=== PATIENT | male | born 1945 | race Caucasian/White ===

== ENCOUNTER 2016-11-11 06:53 | Day surgery (SDC) | payer OTHER ==
[2016-11-11] VITALS (10 sets, daily range): BP systolic 109–130; BP diastolic 53–86; PULSE 65–75; RESP 11–19; O2SAT 92–98
[~2016-11-11] VITALS: Ht 172.7 cm; Wt 88.0 kg
[~2016-11-11 06:53] MED LIST: CHOL200047 PO; CeFAZolin Inj 2 GM in IV Premix 1 EACH IV SCH; Lactated Ringer's 1,000 ML IV SCH
[2016-11-11] MEDS ORDERED: fentaNYL-PF 50 mCg/mL 2 mL Inj ONE (06:54)
[2016-11-11] MEDS ORDERED: Ondansetron 2 mg/mL 2 mL Inj ONE (06:54)
[2016-11-11] MEDS ORDERED: Dexamethasone 4 mg/mL Inj ONE (06:54)
[2016-11-11] MEDS ORDERED: Propofol 10,000 mCg/mL 20 mL Inj ONE (06:54)
[2016-11-11] MEDS ORDERED: HYDROcodone-APAP 5-325 mg Tablet PO PRN (07:50)
[2016-11-11] MEDS: Lactated Ringer's 1,000 ML IV SCH ×2 (08:05→08:41)
[2016-11-11] MEDS ORDERED: Lactated Ringer's 1,000 ML IV SCH (08:53)
[2016-11-11] MEDS ORDERED: Lactated Ringer's 500 ML IV PRN (08:53)
[2016-11-11] MEDS ORDERED: Ondansetron 2 mg/mL 2 mL Inj IVPUSH PRN (08:55)
[2016-11-11] MEDS ORDERED: EPHEDrine Sulfate 50 mg/mL Inj IVPUSH PRN (08:55)
[2016-11-11] MEDS ORDERED: Atropine 0.4 mg/mL Inj IVPUSH PRN (08:55)
[2016-11-11] MEDS ORDERED: Phenylephrine 10,000 mCg/mL Inj IVPUSH PRN (08:55)
[2016-11-11] MEDS ORDERED: Labetalol 5 mg/mL 4 mL Inj IV PRN (08:55)
[2016-11-11] MEDS ORDERED: Lidocaine 1%-Epi 1:100,000 20 mL Inj INJ ONE (09:03)
[2016-11-11] MEDS: fentaNYL-PF 50 mCg/mL 2 mL Inj IVPUSH PRN ×2 (10:00→10:06)
--- NOTE | 2016-11-11 16:59 | OP ---
[address] [address] OPERATIVE REPORT PATIENT: SOSA CANDELARIA : 1945 MR#: [id number] ADMIT: 11/11/2016 JOB ID: [id number] DATE OF SURGERY: 11/11/2016 PREOPERATIVE DIAGNOSIS(ES): 1. Right hand soft tissue mass measuring 3 cm in diameter. 2. Right elbow soft tissue mass measuring 5 mm in diameter. POSTOPERATIVE DIAGNOSIS(ES): 1. Right hand soft tissue mass measuring 3 cm in diameter. 2. Right elbow soft tissue mass measuring 5 mm in diameter. PROCEDURE: 1. Right hand excision of soft tissue tumor measuring 3 cm in diameter that was subcutaneous but also enveloped the extensor tendons. 2. Excision of right elbow soft tissue subcutaneous mass measuring 5 mm in diameter. SURGEON: Magdi Castillo DO ANESTHESIA: General. HISTORY: The patient is a pleasant 71-year-old male with a longstanding history of right hand and elbow mass. He had pain mainly to the elbow mass but noticed that the hand mass was gradually enlarging and appear to be spreading. Due to the size of the mass and continued enlarging, I discussed with the patient the option to have this excised. He understood the risks, benefits, alternatives, and indications, and opted to have both masses excised. He understood the risks include, but not limited to, neurovascular injury, tendon injury, infection, recurrent stiffness, persistent pain, all of which may require further intervention. The patient had all questions answered. Consent was signed and placed in chart. PROCEDURE IN DETAIL: The patient brought to the operating room and placed supine on the operating room table. Surgical time-out was performed and everyone in the room was in agreement. After appropriate anesthesia was obtained, a right upper arm tourniquet was applied. The right extremity prepped and draped in sterile fashion. Right upper extremity then exsanguinated and tourniquet inflated 250 mmHg. Patient's elbow mass was approached first. A cm longitudinal incision was made directly overlying the 5 mm mass. Dissection was carried down through the subcutaneous tissues. The mass was immediately identified and shelled out from the surrounding soft tissues. The mass measured about 5 mm in diameter and had a red coloration. This mass was sent off to Pathology as a gross specimen. The wound was then copiously irrigated and the skin closed with 4-0 nylon in a simple interrupted fashion. Attention was then turned towards the dorsal right hand. A curvilinear incision was made directly overlying the mass. Subcutaneous tissues were dissected with bipolar electrocautery utilized to maintain hemostasis throughout the procedure. The mass was identified within the subcutaneous tissue but extended deep to the extensor tendons. The extensor tendons were identified and retracted out of the field. The mass did envelope some of the extensor digitorum communis tendons. The mass was freed up from the surrounding soft tissues and removed in its entirety. This measured approximately 3 cm in diameter and grossly represented fibrous mass. This was sent off to Pathology as a gross specimen. Copious irrigation was performed followed by closure of skin with 4-0 nylon in simple interrupted. The patient's elbow incision was placed into a soft dressing and the hand and wrist immobilized in a volar resting splint. ESTIMATED BLOOD LOSS: Less than 1 cc. COMPLICATIONS: None. DISPOSITION: The patient tolerated the procedure well. Anesthesia was reversed. The patient was transferred back to recovery. POSTOPERATIVE SPECIMENS: A right elbow 5 mm soft tissue mass and a right dorsal hand 3 cm soft tissue mass. POSTOPERATIVE PLAN: The patient will follow up in office in two weeks. We will remove the patient's sutures at that time as well as his wrist splint and have him start working on range of motion and scar mobilization.
--- NOTE | 2016-11-11 18:22 | PCM.HPANE ---
Patient Data Surgeon Admitting Provider: Attending Provider:Magdi Castillo DO Primary Care Physician:Claircp Other Provider:Rodrigue Kim Anesthesia Reason for Visit Right Hand And Elbow Soft Tissue Mass Ht/WT & BMI Height (Feet): 5 Height (Inches): 8 Weight (Kilograms): 88.0 Body Mass Index 29.00 Allergies Coded Allergies: No Known Allergies (Verified Allergy, Unknown, 11/08/16) Past Anesthesia History Anesthesia History: Denies:: Abnormal Airway, Anesthesia Reactions, Difficult Intubation, Fam Anesthesia Reaction, Fam Malignant Hypertherm, Malignant Hyperthermia Medications Reported Medications Cholecalciferol (Vitamin D3) (Vitamin D3)2,000 Unit Capsule2,000 Unit PO DAILY 11/08/16 History History of ENT Problems?: No HEENT History: Denies:: Abnormal Airway Cataracts Difficult Intubation Dysphagia Glaucoma Hearing Problem Sinus Problem TMJ Denture Type: None Teeth Condition: Within Normal Limits Hx of Heart Problems?: No Cardiovascular History: Denies:: AICD Abdominal Aortic Aneurism Atrial Fibrillation Cardiac Surgery Chest Pain Congestive Heart Failure Coronary Artery Disease Edema Heart Murmur Hypertension Irregular Heartbeat Pacemaker Peripheral Vascular Rheumatic Fever Thrombophlebitis Valvular Heart Disease Hx of Respiratory Problem?: No Respiratory History: Denies:: Asthma COPD Chest Surgery Cough Dyspnea Emphysema Hemoptysis Oxygen Administration Pneumonia Pulmonary Embolism Tuberculosis Use of C-PAP Machine Use of Inhalers / NEBS Hx Neurologic Problems?: No Neurological History: Denies:: Alzheimer's Disease CVA Dementia Dizziness Headaches Multiple Sclerosis Parkinson's Disease Peripheral Neuropathy Seizures TIA Hx of GI Problems?: Yes Gastrointestinal History: Denies:: Cirrhosis Diverticulitis Gall Bladder Disease Gastroesphageal Reflux Gastrointestinal Bleeding Heartburn Hepatitis Hiatal Hernia Liver Disease Rectal Bleeding Hx of Problems?: Yes Genitourinary History: Positive for:: Kidney Stones Denies:: HX of Hemodialysis Urinary Tract Infection HX of Peritoneal Dialysis: No Male Hx: Denies:: Prostate Problems Scrotal Mass Testicular Surgery Skin History: Denies:: History Skin Disorders? Pressure Ulcers Hx Musculoskeletal Problems?: Yes Musculoskeletal History: Positive for:: Osteoarthritis Denies:: Back Injury Degenerative Joint Fibromyalgia Joint Replacement Musculoskeletal Trauma Myasthenia Gravis Rheumatoid Arthritis Systemic Lupus Hx of Psycho/Social Problems?: No Psycho Social History: Denies:: Anxiety Bipolar Disorder Hx Depression Suicide Attempt Hx Surgeries?: Yes (BILATER KNEE, BILATER MENSICUS TEAR) Hx Any Other Health Problems?: Yes Other History: Denies:: Cancer Endocrine Disease Hospitalization Thyroid Disease History Blood Transfusions: Denies:: Accept Blood Products? Blood Transfuse Reaction Blood Transfusions Hx Diabetes: No Hx Substance Use: No Stop/Bang S-Snoring: Do You Snore Loudly: No T-Tired: feel tired, fatigued: No O-Obsered: Observed not breath: No P-Blood Pressure: treated: No B- Body Mass Index > 35 kg/m2: No A- Age over 50: Yes N- Neck Large Circumference: No G- Gender Male: No FRANK Total Score: 1 Risk Assessment Category Category 1A: Patient has history of documented sleep apnea, and HAS NOT received any narcotic, sedative or anesthesia administration during this stay. Category 1B: Patient has history of documented sleep apnea, and HAS received any narcotic , sedative or anesthesia administration during this stay Category 2: Patient has SUSPECTED Obstructive Sleep Apnea, and HAS received any narcotic , sedative or anesthesia administration during this stay. Category 3: Patient has SUSPECTED Obstructive Sleep Apnea and HAS NOT received narcotic, sedative or anesthesia administration during this stay. Category 4: Outpatient in Procedural Areas with known sleep apnea or who screen positive for High Risk via the STOP/BANG questionnaire. Exam Exam Vital Signs Vital Signs Date Time Temp Pulse Resp B/P Pulse Ox O2 Delivery O2 Flow Rate FiO2 11/11/16 07:15 36.5 65 17 122/86 97 Room Air General Appearance: Alert, Oriented X3, Cooperative, No Acute Distress HEENT/AIRWAY: MP 2, Neck Movement (FROM), Mouth Opening (3 FBMO) Lungs: Normal Air Movement Heart: Regular Rate/Rhythm Meds/Labs/Diagnostics Admission Meds Current Medications Lactated Ringer's (Lr) 1,000 ml @ 120 mls/hr [id number] IV Last administered on t 08:05; Start 11/11/16 at 05:00; Stop 11/11/16 at 13:19 Plan Impression Patient chart reviewed, patient interviewed and anesthestic plan with risks, benefits, and alternatives discussed, and informed consent obtained. NPO per Anesth. Guidelines: Yes ASA Physical Status: ASA2 Mod Systemic Disease Anesthetic Plan: GA Bene/Risks/Altern/Consents: Yes HP Complete Prior to Induction: Yes Kenyon Steen MD November 11, 2016 08:07
--- NOTE | 2016-11-11 18:23 | PCM.ANEP1 ---
Post Anesthesia PACU Phase 1 Assessment Vital Signs Vital Signs Date Time Temp Pulse Resp B/P Pulse Ox O2 Delivery O2 Flow Rate FiO2 11/11/16 10:32 72 16 124/76 95 Room Air 11/11/16 10:23 67 19 110/69 93 Room Air Anesthetic Administered: GA Level of Alertness: Awake, talking VILLARREAL's with Equal Strength: Yes Pain: No Nausea or Vomiting: No CV Function & Hydration Stable: No Airway Device: Oxygen Delivery: Room Air Lungs: Normal Air Movement Dermatome Level: Full Sensation PACU Phase 2 Assessment Complications: No Follow up Care: N/A Patient Instructions Provided: N/A Kenyon Steen MD November 11, 2016 18:23
--- NOTE | 2016-11-19 13:58 | PATH ---
SURGICAL PATHOLOGY Attending Physician:Magdi Castillo MD CASE STATUS: Signed Out PATIENT NAME: SOSA CANDELARIA PID: [id number] : 1945 DATE COLLECTED:11/11/2016 15:40 SPECIMEN: 1: Mass, NOS 2: Mass, NOS CLINICAL HISTORY: RIGHT HAND AND ELBOW SOFT TISSUE MASS 1. RT ELBOW MASS 2. RIGHT HAND MASS FINAL DIAGNOSIS: 1.RIGHT ELBOW MASS: BENIGN GLOMUS TUMOR. 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 ICD10 D18.00 GROSS DESCRIPTION: The specimen is received in two formalin filled containers labeled with the patient's name. 1). The specimen is sublabeled "right elbow mass" and consists of a dark luis lin to eastman-brown portion of tissue which measures 0.7 x 0.7 x 0.5 CM. The specimen is inked blue. The specimen is trisected and entirely submitted in cassette 1A. 2). The specimen is sublabeled "right hand mass" and consists of a light eastman firm rough portion of tissue which measures 4.5 x 3.0 x 1.0 CM. The specimen is inked blue. 2 digital sales representative sections are submitted in cassette 2A. 11/11/2016 [facility] MICRO DESCRIPTION: See diagnosis. ICD-9 CODES: CPT CODES: 1: 72515 2: 34047 Electronically Signed Out Shahriar Troy MD [facility] Pathology [facility] [address], [place] [address] Technical component performed at [facility], [address] [place] [address] Ave[address], [address]
== END 2016-11-11 23:59 | disposition home or self-care (01) ==
LOC: SAS 06:53
PROVIDERS: ATTEND Orthopaedic Surgery
DX: D17.21 Benign lipomatous neoplasm of skin and subcutaneous tissue of right arm (principal); D18.01 Hemangioma of skin and subcutaneous tissue; R22.31 Localized swelling, mass and lump, right upper limb; M13.862 Other specified arthritis, left knee; M13.861 Other specified arthritis, right knee; Z87.442 Personal history of urinary calculi
CPT/HCPCS: 11400; 11423; J0690; J1100; J1885; J2405; J3010; J7120